=== PATIENT | female | born 2000 | race Caucasian/White ===

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

== ENCOUNTER → 2020-02-20 | Outpatient (CLI) | payer BC, MEDICAID ==
[2020-02-20 08:25] LABS: Basophils # (auto) 0 10 ^3/uL (0-0.2); Eosinophils # (auto) 0 10 ^3/uL (0-0.8); Hemoglobin 12.4 g/dL (12.2-16.2); Monocytes # (auto) 0.6 10 ^3/uL (0-1.3); Nucleated Red Blood Cells % 0.1 %
[2020-02-20 08:26] LABS: Basophils % (auto) 0.1 % (0.0-2.0); Hematocrit 38.6 % (36.0-46.0); Lymphocytes # (auto) 2.5 10 ^3/uL (0.4-5.4); Lymphocytes % (auto) 27.6 % (10.0-50.0); Mean Corpuscular Hemoglobin 23.1 pg (28.0-32.0); Mean Corpuscular Hgb Conc. 32.2 g/dL (32.0-36.0); Mean Corpuscular Volume 71.8 fL (80.0-100.0); Monocytes % (auto) 6.6 % (0.0-12.0); Neutrophils % (auto) 65.7 % (37.0-80.0); Platelet Count (auto) 301 10^3/uL (140-450); Red Blood Cells 5.38 10^6/uL (4.0-5.20); Red Cell Distribution Width 15.9 % (11.8-14.3); White Blood Cell 9.1 10^3/uL (4.4-10.8)
[2020-02-20 08:54] LABS: Potassium 3.7 mmol/L (3.5-5.1)
[2020-02-20 09:01] LABS: Albumin 3.3 g/dL (3.4-5.0); BUN/Creatinine Ratio 17.6; Bilirubin, Total 0.3 mg/dL (0.2-1.0); Calcium 8.9 mg/dL (8.5-10.1); Total Protein 7.2 g/dL (6.4-8.2)
== END | disposition home or self-care (01) ==
LOC: LAB 08:09
PROVIDERS: ATTEND Physician Assistant
DX: J45.909 Unspecified asthma, uncomplicated (principal); E28.2 Polycystic ovarian syndrome; E66.01 Morbid (severe) obesity due to excess calories
CPT/HCPCS: 36415; 80053; 80061; 85025

== ENCOUNTER → 2020-06-04 | Outpatient (CLI) | payer BC, MEDICAID | END | disposition home or self-care (01) | LOC: LAB 08:16 | DX: J30.1 Allergic rhinitis due to pollen (principal) | CPT/HCPCS: 82785 ==

== ENCOUNTER → 2020-06-10 | Outpatient (CLI) | payer BC, MEDICAID ==
[2020-06-10 15:08] LABS: Basophils # (auto) 0 10 ^3/uL (0-0.2); Basophils % (auto) 0.1 % (0.0-2.0); Eosinophils # (auto) 0 10 ^3/uL (0-0.8); Mean Corpuscular Hemoglobin 22.9 pg (28.0-32.0); Mean Corpuscular Hgb Conc. 32.2 g/dL (32.0-36.0); Monocytes # (auto) 0.4 10 ^3/uL (0-1.3); Neutrophils # (auto) 6.2 10 ^3/uL (1.6-8.6); White Blood Cell 8.7 10^3/uL (4.4-10.8)
[2020-06-10 15:09] LABS: Hematocrit 36.9 % (36.0-46.0); Hemoglobin 11.9 g/dL (12.2-16.2); Lymphocytes % (auto) 23.2 % (10.0-50.0); Mean Corpuscular Volume 71.3 fL (80.0-100.0); Monocytes % (auto) 5.1 % (0.0-12.0); Neutrophils % (auto) 71.6 % (37.0-80.0); Platelet Count (auto) 328 10^3/uL (140-450); Red Blood Cells 5.18 10^6/uL (4.0-5.20); Red Cell Distribution Width 15.7 % (11.8-14.3)
[2020-06-10 15:38] LABS: BUN/Creatinine Ratio 10.2; Calcium 8.8 mg/dL (8.5-10.1)
== END | disposition home or self-care (01) ==
LOC: LAB 14:49
PROVIDERS: ATTEND Physician Assistant
DX: Z01.818 Encounter for other preprocedural examination (principal); Z01.812 Encounter for preprocedural laboratory examination
CPT/HCPCS: 36415; 80048; 85025

== ENCOUNTER → 2021-03-02 | Outpatient (CLI) | payer BC ==
[~2021-03-02] MED LIST changes: -LEVO500T21 PO; +LEVO500T31 PO
[2021-03-02 09:24] LABS: Basophils # (auto) 0 10 ^3/uL (0-0.2); Basophils % (auto) 0.1 % (0.0-2.0); Eosinophils # (auto) 0 10 ^3/uL (0-0.8); Hematocrit 33.8 % (36.0-46.0); Hemoglobin 11.1 g/dL (12.2-16.2); Lymphocytes # (auto) 3.2 10 ^3/uL (0.4-5.4); Mean Corpuscular Hemoglobin 22.6 pg (28.0-32.0); Mean Corpuscular Volume 68.5 fL (80.0-100.0); Red Blood Cells 4.93 10^6/uL (4.0-5.20)
[2021-03-02 09:26] LABS: Lymphocytes % (auto) 28.4 % (10.0-50.0); Monocytes # (auto) 0.7 10 ^3/uL (0-1.3); Neutrophils # (auto) 7.4 10 ^3/uL (1.6-8.6); Neutrophils % (auto) 65.5 % (37.0-80.0); Nucleated Red Blood Cells % 0.1 %; White Blood Cell 11.3 10^3/uL (4.4-10.8)
[2021-03-02 10:09] LABS: Potassium 3.9 mmol/L (3.5-5.1)
[2021-03-02 10:12] LABS: BUN/Creatinine Ratio 18.9; Bilirubin, Total 0.2 mg/dL (0.2-1.0); Calcium 8.1 mg/dL (8.5-10.1)
== END | disposition home or self-care (01) ==
LOC: LAB 08:21
PROVIDERS: ATTEND Nurse Practitioner Family
DX: E66.01 Morbid (severe) obesity due to excess calories (principal); F41.9 Anxiety disorder, unspecified; F33.1 Major depressive disorder, recurrent, moderate; J45.909 Unspecified asthma, uncomplicated
CPT/HCPCS: 36415; 80053; 83036; 84443; 85025

== ENCOUNTER 2021-10-05 10:35 | Inpatient (IN) | payer BC, MEDICAID ==
[~2021-10-05] VITALS: Ht 177.8 cm; Wt 146.3 kg
[2021-10-05] MEDS ORDERED: ALBUTEROL SULF 2.5 MG/0.5ML(0.5%) NEB SOLN HHN ONE (11:15)
[2021-10-05] MEDS ORDERED: methylPREDNISolone SOD SUCC 125 MG/2 ML VL IV ONE (11:15)
[2021-10-05] MEDS ORDERED: IPRATROPIUM BROM 0.5 MG/2.5ML INH SOL HHN ONE (11:15)
[2021-10-05 12:23] LABS: Basophils # (auto) 0 10 ^3/uL (0-0.2); Basophils % (auto) 0.1 % (0.0-2.0); Eosinophils # (auto) 0 10 ^3/uL (0-0.8); Hemoglobin 11.2 g/dL (12.2-16.2); Lymphocytes # (auto) 1.8 10 ^3/uL (0.4-5.4); Monocytes # (auto) 0.5 10 ^3/uL (0-1.3)
[2021-10-05 12:29] LABS: Hematocrit 34.6 % (36.0-46.0); Lymphocytes % (auto) 24.5 % (10.0-50.0); Mean Corpuscular Hemoglobin 21.9 pg (28.0-32.0); Mean Corpuscular Hgb Conc. 32.4 g/dL (32.0-36.0); Mean Corpuscular Volume 67.5 fL (80.0-100.0); Monocytes % (auto) 6.7 % (0.0-12.0); Neutrophils % (auto) 68.7 % (37.0-80.0); Red Blood Cells 5.12 10^6/uL (4.0-5.20); White Blood Cell 7.2 10^3/uL (4.4-10.8)
[2021-10-05 12:53] LABS: Albumin 3.3 g/dL (3.4-5.0); Calcium 8.9 mg/dL (8.5-10.1)
[2021-10-05 12:55] LABS: Bilirubin, Total 0.3 mg/dL (0.2-1.0); Total Protein 7.3 g/dL (6.4-8.2)
[2021-10-05] MEDS ORDERED: guaiFENesin 200 MG/10 ML UD PO PRN (13:15)
[2021-10-05] MEDS ORDERED: LORazepam 0.5 MG TAB PO PRN (13:45)
[2021-10-05] MEDS: ALBUTEROL SULF 2.5 MG/0.5ML(0.5%) NEB SOLN NEB PRN (15:24)
[2021-10-05 17:39] VITALS: BP 113/50
[2021-10-05] MEDS ORDERED: QUET400T PO (18:04)
[2021-10-05] MEDS: IPRATROPIUM BROM 0.5 MG/2.5ML INH SOL NEB SCH ×2 (18:13→22:06)
[2021-10-05] MEDS: ALBUTEROL SULF 2.5 MG/0.5ML(0.5%) NEB SOLN NEB SCH ×2 (18:13→22:06)
[2021-10-05 20:00] VITALS: BP 120/85
[2021-10-05] MEDS: QUEtiapine FUMARATE 100 MG TAB PO SCH (21:31)
[2021-10-05] MEDS: TEMAZEPAM 15 MG CAP PO SCH (21:31)
[2021-10-05] MEDS: methylPREDNISolone SOD SUCC 125 MG/2 ML VL IV SCH (21:31)
[2021-10-05 22:00] VITALS: BP 120/85
[2021-10-06] MEDS: ALBUTEROL SULF 2.5 MG/0.5ML(0.5%) NEB SOLN NEB PRN (04:43)
[2021-10-06 05:00] VITALS: BP 135/72
[2021-10-06 06:10] LABS: Basophils # (auto) 0 10 ^3/uL (0-0.2); Basophils % (auto) 0.1 % (0.0-2.0); Eosinophils # (auto) 0 10 ^3/uL (0-0.8); Hematocrit 35.5 % (36.0-46.0); Hemoglobin 11.6 g/dL (12.2-16.2); Mean Corpuscular Hemoglobin 22.3 pg (28.0-32.0); Mean Corpuscular Hgb Conc. 32.7 g/dL (32.0-36.0); Mean Corpuscular Volume 68.2 fL (80.0-100.0); Monocytes # (auto) 0.2 10 ^3/uL (0-1.3); Monocytes % (auto) 2.6 % (0.0-12.0); Neutrophils # (auto) 7.5 10 ^3/uL (1.6-8.6); Neutrophils % (auto) 86.3 % (37.0-80.0); Red Blood Cells 5.21 10^6/uL (4.0-5.20); Red Cell Distribution Width 16.7 % (11.8-14.3); White Blood Cell 8.7 10^3/uL (4.4-10.8)
[2021-10-06 06:28] LABS: Calcium 9.2 mg/dL (8.5-10.1); Potassium 4.1 mmol/L (3.5-5.1)
[2021-10-06] MEDS: IPRATROPIUM BROM 0.5 MG/2.5ML INH SOL NEB SCH ×4 (07:18→22:03)
[2021-10-06] MEDS: ALBUTEROL SULF 2.5 MG/0.5ML(0.5%) NEB SOLN NEB SCH ×4 (07:18→22:03)
[2021-10-06 08:45] VITALS: BP 135/102
[2021-10-06] MEDS ORDERED: cefTRIAXone SOD 1,000 MG VL IV SCH (10:15)
[2021-10-06] MEDS: cefTRIAXone 1GM/50ML D5W 50 ML IV SCH (10:16)
[2021-10-06] MEDS: methylPREDNISolone SOD SUCC 125 MG/2 ML VL IV SCH ×2 (10:49→21:38)
[2021-10-06] MEDS: FAMOTIDINE 20 MG TAB PO SCH (10:50)
[2021-10-06 13:00] VITALS: BP 134/66
[2021-10-06] MEDS ORDERED: TEMA15CA2 PO (13:18)
[2021-10-06] MEDS ORDERED: ATOM60CA PO (13:18)
[2021-10-06 16:49] VITALS: BP 132/92
[2021-10-06 20:00] VITALS: BP 125/82
[2021-10-06] MEDS: QUEtiapine FUMARATE 100 MG TAB PO SCH (21:39)
[2021-10-06] MEDS: TEMAZEPAM 15 MG CAP PO SCH (21:39)
[2021-10-06 22:25] VITALS: BP 125/82
[2021-10-07 05:07] VITALS: BP 112/36
[2021-10-07] MEDS: IPRATROPIUM BROM 0.5 MG/2.5ML INH SOL NEB SCH ×4 (06:35→22:15)
[2021-10-07] MEDS: ALBUTEROL SULF 2.5 MG/0.5ML(0.5%) NEB SOLN NEB SCH ×4 (06:35→22:15)
[2021-10-07 08:00] VITALS: BP 118/64
[2021-10-07] MEDS: cefTRIAXone 1GM/50ML D5W 50 ML IV SCH ×2 (09:00→10:00)
[2021-10-07] MEDS: methylPREDNISolone SOD SUCC 125 MG/2 ML VL IV SCH (09:46)
[2021-10-07] MEDS: LORATADINE 10 MG TAB PO SCH (09:47)
[2021-10-07] MEDS: ACETAMINOPHEN 325 MG TAB PO PRN (09:49)
[2021-10-07] MEDS: FAMOTIDINE 20 MG TAB PO SCH (09:49)
[2021-10-07] MEDS ORDERED: ATOMOXETINE 60 MG PO SCH (10:00)
[2021-10-07 12:00] VITALS: BP 125/70
[2021-10-07 16:00] VITALS: BP 119/85
[2021-10-07] MEDS: QUEtiapine FUMARATE 100 MG TAB PO SCH (20:41)
[2021-10-07] MEDS: methylPREDNISolone SOD SUCC 40 MG/ML VL IV SCH (20:41)
[2021-10-07] MEDS: TEMAZEPAM 15 MG CAP PO SCH (20:41)
[2021-10-07] MEDS: ATOMOXETINE 60 MG PO SCH (20:55)
[2021-10-07 21:39] VITALS: BP 145/76
[2021-10-08 03:41] VITALS: BP 145/76
[2021-10-08 05:00] VITALS: BP 105/54
[2021-10-08] MEDS: IPRATROPIUM BROM 0.5 MG/2.5ML INH SOL NEB SCH ×4 (07:42→20:18)
[2021-10-08] MEDS: ALBUTEROL SULF 2.5 MG/0.5ML(0.5%) NEB SOLN NEB SCH ×4 (07:42→20:19)
[2021-10-08] MEDS ORDERED: cefTRIAXone 1GM/50ML D5W 50 ML IV ONE (08:00)
[2021-10-08 08:57] VITALS: BP 124/73
[2021-10-08] MEDS: methylPREDNISolone SOD SUCC 40 MG/ML VL IV SCH (09:41)
[2021-10-08] MEDS: LORATADINE 10 MG TAB PO SCH (09:41)
[2021-10-08] MEDS: FAMOTIDINE 20 MG TAB PO SCH (09:42)
[2021-10-08 12:32] VITALS: BP 131/79
[2021-10-08] MEDS: ACETAMINOPHEN 325 MG TAB PO PRN (12:51)
[2021-10-08] MEDS ORDERED: ENOXAPARIN SOD 40 MG/0.4 ML SYRINGE SC SCH ×2 (16:00→16:22)
[2021-10-08] MEDS ORDERED: ENOXAPARIN SOD 40 MG/0.4 ML SYRINGE SC ONE (16:30)
[2021-10-08 16:43] VITALS: BP 152/98
[2021-10-08] MEDS: TEMAZEPAM 15 MG CAP PO SCH (21:10)
[2021-10-08] MEDS: QUEtiapine FUMARATE 100 MG TAB PO SCH (21:10)
[2021-10-08] MEDS: predniSONE 20 MG TAB PO SCH (21:10)
[2021-10-08] MEDS: ATOMOXETINE 60 MG PO SCH (21:11)
[2021-10-08 21:50] VITALS: BP 149/90
[2021-10-09 05:16] VITALS: BP 105/42
[2021-10-09 08:30] VITALS: BP 140/88
[2021-10-09] MEDS: predniSONE 20 MG TAB PO SCH (08:59)
[2021-10-09] MEDS: LORATADINE 10 MG TAB PO SCH (08:59)
[2021-10-09] MEDS: FAMOTIDINE 20 MG TAB PO SCH (09:00)
[2021-10-09] MEDS ORDERED: ENOXAPARIN SOD 40 MG/0.4 ML SYRINGE SC SCH (10:00)
[2021-10-09 12:30] VITALS: BP 155/91
[2021-10-09] MEDS ORDERED: PRED1PAK9 PO ×2 (13:00→13:08)
[2021-10-09] MEDS ORDERED: FAMO-12 PO (13:02)
== END 2021-10-09 14:00 | disposition home or self-care (01) | DRG 202 ==
LOC: ER 10:35 → TELE 14:33 → TELE-WESTW 17:00
PROVIDERS: ADMIT Internal Medicine; ATTEND Internal Medicine
DX: J45.42 Moderate persistent asthma with status asthmaticus (principal); Z68.42 Body mass index [BMI] 45.0-49.9, adult; R09.02 Hypoxemia; F31.9 Bipolar disorder, unspecified; D63.8 Anemia in other chronic diseases classified elsewhere; E66.9 Obesity, unspecified; R00.0 Tachycardia, unspecified; Z20.822 Contact with and (suspected) exposure to COVID-19; Z83.3 Family history of diabetes mellitus; Z82.3 Family history of stroke; Z80.3 Family history of malignant neoplasm of breast; Z88.1 Allergy status to other antibiotic agents
CPT/HCPCS: 36415; 71046; 80048; 80053; 85025; 85379; 87070; 87205; 87426; 93005; 94640; 94644; 94660; 96374; G0378; J0696

== ENCOUNTER 2022-02-10 07:15 | Day surgery (SDC) | payer BC, MEDICAID ==
[2022-01-20 09:52] LABS: Urine Bacteria NONE SEEN /hpf (None Seen); Urine Blood Negative /uL (Negative); Urine Specific Gravity 1.018 (1.001-1.035); Urine WBC <1 /hpf (0 - 5)
[2022-01-20 10:04] LABS: Basophils # (auto) 0.1 10 ^3/uL (0-0.2); Basophils % (auto) 1.4 % (0.0-2.0); Eosinophils # (auto) 0 10 ^3/uL (0-0.8); Hematocrit 34.3 % (36.0-46.0); Lymphocytes # (auto) 2.5 10 ^3/uL (0.4-5.4); Lymphocytes % (auto) 34.6 % (10.0-50.0); Mean Corpuscular Hemoglobin 22.3 pg (28.0-32.0); Mean Corpuscular Hgb Conc. 32.2 g/dL (32.0-36.0); Mean Corpuscular Volume 69.4 fL (80.0-100.0); Monocytes # (auto) 0.5 10 ^3/uL (0-1.3); Monocytes % (auto) 7.3 % (0.0-12.0); Neutrophils # (auto) 4.1 10 ^3/uL (1.6-8.6); Neutrophils % (auto) 56.7 % (37.0-80.0); Nucleated Red Blood Cells % 0.1 %; Red Blood Cells 4.95 10^6/uL (4.0-5.20); White Blood Cell 7.2 10^3/uL (4.4-10.8)
[2022-01-20 10:23] LABS: INR 1.03 (0.9-1.15); Partial Thromboplastin Time 27.8 sec (23.6-33.0)
[2022-01-20 10:26] LABS: Potassium 4.1 mmol/L (3.5-5.1)
[2022-01-20 10:34] LABS: Albumin 3.2 g/dL (3.4-5.0); Bilirubin, Total 0.2 mg/dL (0.2-1.0); Calcium 8.5 mg/dL (8.5-10.1)
[2022-02-08 09:17] LABS: Basophils # (auto) 0 10 ^3/uL (0-0.2); Basophils % (auto) 0.1 % (0.0-2.0); Eosinophils # (auto) 0 10 ^3/uL (0-0.8); Hematocrit 37.5 % (36.0-46.0); Hemoglobin 11.7 g/dL (12.2-16.2); Lymphocytes # (auto) 2.9 10 ^3/uL (0.4-5.4); Lymphocytes % (auto) 37.2 % (10.0-50.0); Mean Corpuscular Hemoglobin 21.5 pg (28.0-32.0); Mean Corpuscular Hgb Conc. 31.2 g/dL (32.0-36.0); Monocytes # (auto) 0.6 10 ^3/uL (0-1.3); Monocytes % (auto) 7.5 % (0.0-12.0); Neutrophils # (auto) 4.2 10 ^3/uL (1.6-8.6); Neutrophils % (auto) 55.2 % (37.0-80.0); Red Blood Cells 5.44 10^6/uL (4.0-5.20); Red Cell Distribution Width 16.8 % (11.8-14.3); White Blood Cell 7.7 10^3/uL (4.4-10.8)
[2022-02-08 09:19] LABS: Mean Corpuscular Volume 68.9 fL (80.0-100.0)
[2022-02-08 09:30] LABS: Urine Bacteria FEW /hpf (None Seen); Urine Blood Negative /uL (Negative); Urine Specific Gravity 1.016 (1.001-1.035); Urine WBC 4 /hpf (0 - 5)
[2022-02-08 09:40] LABS: INR 1.04 (0.9-1.15); Partial Thromboplastin Time 28.2 sec (23.6-33.0)
[2022-02-08 09:44] LABS: Potassium 4.2 mmol/L (3.5-5.1)
[2022-02-08 09:51] LABS: Albumin 3.2 g/dL (3.4-5.0); BUN/Creatinine Ratio 12.2; Bilirubin, Total 0.2 mg/dL (0.2-1.0); Calcium 8.7 mg/dL (8.5-10.1)
[~2022-02-10] VITALS: Ht 177.8 cm; Wt 163.3 kg
[~2022-02-10 07:15] MED LIST changes: -ALBU0.084; +ALBU1AER4 IN; +ATOM60CA PO; -DOX100T PO; +FAMO-12 PO; -FLUO-125 PO; +FLUT1AER17 IN; -FLUT250M2 INH; -GUAISYP8; -LEVO500T31 PO; +LORA0.5T19 PO; -PANT40T PO; -PRE1T PO; +QUET300T4 PO; -SACC250C PO; +TEMA15CA2 PO; +[UNRECOGNIZED DRUG - CODE] SC
[2022-02-10] MEDS ORDERED: CLINDAMYCIN 900MG IV 50 ML IV ONE (07:26)
[2022-02-10] MEDS ORDERED: CLIN300C8 PO (08:49)
[2022-02-10] MEDS ORDERED: HYDR-4902 PO (08:49)
[2022-02-10] MEDS ORDERED: SUCCINYLCHOLINE CHLORIDE 20 MG/ML 10ML VIAL IV ONE (09:07)
[2022-02-10] MEDS ORDERED: PROPOFOL 10 MG/ML 20 ML IV ONE ×3 (09:12→12:13)
[2022-02-10] MEDS ORDERED: MIDAZOLAM HCL 2MG/2ML 2ml VIAL (1mg/ml) ONE (09:14)
[2022-02-10] MEDS ORDERED: fentaNYL CITRATE 100 MCG/2 ML VL ONE ×2 (09:14→09:49)
[2022-02-10] MEDS ORDERED: ROCURONIUM 10MG/ML 10ML VIAL IV ONE (09:32)
[2022-02-10] MEDS ORDERED: ONDANSETRON HCL 4 MG/2 ML VIAL IV PRN (10:30)
[2022-02-10] MEDS ORDERED: ONDANSETRON HCL 4 MG/2 ML VIAL ONE (11:01)
[2022-02-10] MEDS: HYDROmorphone HCL 2 MG/ML VL/or syr IV PRN ×2 (12:25→12:45)
[2022-02-10 13:10] VITALS: BP 128/64
== END 2022-02-10 13:30 | disposition home or self-care (01) ==
LOC: SUR 07:15
PROVIDERS: ATTEND Student in an Organized Health Care Education/Training Program
DX: S93.431A Sprain of tibiofibular ligament of right ankle, initial encounter (principal); M25.371 Other instability, right ankle; J45.909 Unspecified asthma, uncomplicated; F90.9 Attention-deficit hyperactivity disorder, unspecified type; Z88.0 Allergy status to penicillin; E66.01 Morbid (severe) obesity due to excess calories; G47.30 Sleep apnea, unspecified; F41.9 Anxiety disorder, unspecified; F32.A Depression, unspecified; Z80.3 Family history of malignant neoplasm of breast; Z98.890 Other specified postprocedural states; Z79.899 Other long term (current) drug therapy; Z68.43 Body mass index [BMI] 50.0-59.9, adult; Z83.3 Family history of diabetes mellitus; Z82.49 Family history of ischemic heart disease and other diseases of the circulatory system; Z20.822 Contact with and (suspected) exposure to COVID-19; X58.XXXA Exposure to other specified factors, initial encounter; Y92.89 Other specified places as the place of occurrence of the external cause; Y93.89 Activity, other specified; Y99.8 Other external cause status
CPT/HCPCS: 27695; 36415; 73600; 80053; 81001; 81025; 84702; 85025; 85610; 85730; C1713; J0330; J1170; J2001; J2250; J2405; J2704; J3010; J3490; U0003; 76000

== ENCOUNTER → 2022-06-16 | Outpatient (CLI) | payer BC, MEDICAID ==
[~2022-06-16] MED LIST changes: +CLIN300C8 PO; +HYDR-4902 PO
[2022-06-16 10:32] LABS: Basophils # (auto) 0 10 ^3/uL (0-0.2); Basophils % (auto) 0.1 % (0.0-2.0); Eosinophils # (auto) 0 10 ^3/uL (0-0.8); Lymphocytes # (auto) 2.2 10 ^3/uL (0.4-5.4); Monocytes # (auto) 0.5 10 ^3/uL (0-1.3)
[2022-06-16 10:34] LABS: Hematocrit 36.9 % (36.0-46.0); Hemoglobin 11.5 g/dL (12.2-16.2); Lymphocytes % (auto) 30.1 % (10.0-50.0); Mean Corpuscular Hemoglobin 21.4 pg (28.0-32.0); Mean Corpuscular Hgb Conc. 31.3 g/dL (32.0-36.0); Mean Corpuscular Volume 68.4 fL (80.0-100.0); Neutrophils # (auto) 4.7 10 ^3/uL (1.6-8.6); Neutrophils % (auto) 62.8 % (37.0-80.0); Nucleated Red Blood Cells % 0.1 %; Red Blood Cells 5.39 10^6/uL (4.0-5.20); Red Cell Distribution Width 17.1 % (11.8-14.3); White Blood Cell 7.5 10^3/uL (4.4-10.8)
[2022-06-16 11:19] LABS: Albumin 3.3 g/dL (3.4-5.0); BUN/Creatinine Ratio 13.1; Calcium 8.8 mg/dL (8.5-10.1); Potassium 4.1 mmol/L (3.5-5.1); Total Protein 7.2 g/dL (6.4-8.2)
[2022-06-16 11:25] LABS: Bilirubin, Total 0.3 mg/dL (0.2-1.0)
== END | disposition home or self-care (01) ==
LOC: LAB 10:10
PROVIDERS: ATTEND Nurse Practitioner Family
DX: Z00.00 Encounter for general adult medical examination without abnormal findings (principal); E66.01 Morbid (severe) obesity due to excess calories; F31.9 Bipolar disorder, unspecified
CPT/HCPCS: 36415; 80053; 80061; 84439; 84443; 85025; 85652; 86431

== ENCOUNTER 2022-11-08 16:35 | Emergency (ER) | payer BC, MEDICAID ==
[~2022-11-08] VITALS: Ht 177.8 cm; Wt 184.8 kg
[2022-11-08] MEDS ORDERED: IPRATROPIUM BROM 0.5 MG/2.5ML INH SOL NEB ONE (19:00)
[2022-11-08] MEDS ORDERED: FAMOTIDINE (10MG/ML) 2ML VL IV ONE (19:00)
[2022-11-08] MEDS ORDERED: diphenhdrAMINE HCL 50 MG/1 ML VL IV ONE ×2 (19:00→23:30)
[2022-11-08] MEDS ORDERED: ALBUTEROL SULF 2.5 MG/0.5ML(0.5%) NEB SOLN NEB ONE (19:00)
[2022-11-08] MEDS ORDERED: methylPREDNISolone SOD SUCC 125 MG/2 ML VL IV ONE (19:00)
[2022-11-08 23:24] VITALS: BP 138/76
[2022-11-08] MEDS ORDERED: PRED20TA2 PO (23:28)
== END 2022-11-09 00:14 | disposition home or self-care (01) ==
LOC: ER 16:35
DX: T38.0X5A Adverse effect of glucocorticoids and synthetic analogues, initial encounter (principal); F41.9 Anxiety disorder, unspecified; J45.909 Unspecified asthma, uncomplicated; F32.9 Major depressive disorder, single episode, unspecified; Z91.011 Allergy to milk products; Z79.899 Other long term (current) drug therapy; Y92.89 Other specified places as the place of occurrence of the external cause
CPT/HCPCS: 94640; 96374; 96375; 96376; 99284; J1200; J2930; J3490; J7644

== ENCOUNTER → 2023-02-14 | Outpatient (CLI) | payer BC, MEDICAID ==
[~2023-02-14] MED LIST changes: +ALBUTEROL SULF 2.5 MG/0.5ML(0.5%) NEB SOLN ONE; +CLIN300C70 PO; -CLIN300C8 PO; +LORA-1120 PO; -LORA0.5T19 PO; +PRED20TA2 PO
== END | disposition home or self-care (01) ==
LOC: RT 12:34
PROVIDERS: ATTEND Nurse Practitioner Family
DX: J45.50 Severe persistent asthma, uncomplicated (principal); R06.02 Shortness of breath
CPT/HCPCS: 94060; 94727; 94729

== ENCOUNTER → 2023-02-27 | Outpatient (CLI) | payer BC ==
[~2023-02-27] MED LIST changes: -ALBUTEROL SULF 2.5 MG/0.5ML(0.5%) NEB SOLN ONE
[2023-02-27 12:34] LABS: Basophils # (auto) 0 10 ^3/uL (0-0.2); Eosinophils % (auto) 0.6 % (0.0-7.0); Hematocrit 38.9 % (36.0-46.0); Monocytes # (auto) 0.5 10 ^3/uL (0-1.3); Nucleated Red Blood Cells % 0.1 %
[2023-02-27 12:36] LABS: Basophils % (auto) 0.6 % (0.0-2.0); Eosinophils # (auto) 0 10 ^3/uL (0-0.8); Hemoglobin 12.5 g/dL (12.2-16.2); Lymphocytes # (auto) 2.1 10 ^3/uL (0.4-5.4); Lymphocytes % (auto) 24.2 % (10.0-50.0); Mean Corpuscular Hemoglobin 22.4 pg (28.0-32.0); Mean Corpuscular Hgb Conc. 32.3 g/dL (32.0-36.0); Mean Corpuscular Volume 69.5 fL (80.0-100.0); Monocytes % (auto) 6.5 % (0.0-12.0); Neutrophils # (auto) 5.8 10 ^3/uL (1.6-8.6); Neutrophils % (auto) 68.1 % (37.0-80.0); Red Blood Cells 5.59 10^6/uL (4.0-5.20); Red Cell Distribution Width 16.8 % (11.8-14.3); White Blood Cell 8.5 10^3/uL (4.4-10.8)
[2023-02-28 07:12] LABS: Immunoglobulin G, Serum 931 mg/dL (586-1602)
== END | disposition home or self-care (01) ==
LOC: LAB 11:26
PROVIDERS: ATTEND Internal Medicine Gastroenterology
DX: D80.1 Nonfamilial hypogammaglobulinemia (principal)
CPT/HCPCS: 36415; 82784; 82785; 85025; 86160

== ENCOUNTER 2023-10-21 09:43 | Emergency (ER) | payer BC, MEDICAID ==
[~2023-10-21] VITALS: Ht 177.8 cm; Wt 178.7 kg
[2023-10-21 11:22] VITALS: BP 144/79; TEMP 97.5
[2023-10-21] MEDS: ALBUTEROL SULF 2.5 MG/0.5ML(0.5%) NEB SOLN NEB ONE ×2 (12:03→14:53)
[2023-10-21] MEDS: IPRATROPIUM BROM 0.5 MG/2.5ML INH SOL NEB ONE ×2 (12:03→14:53)
[2023-10-21 12:34] LABS: Basophils # (auto) 0 10 ^3/uL (0-0.2); Basophils % (auto) 0.1 % (0.0-2.0); Eosinophils # (auto) 0 10 ^3/uL (0-0.8); Hemoglobin 11.3 g/dL (12.2-16.2); Lymphocytes # (auto) 2.2 10 ^3/uL (0.4-5.4); Monocytes # (auto) 0.6 10 ^3/uL (0-1.3); Neutrophils # (auto) 6.8 10 ^3/uL (1.6-8.6); White Blood Cell 9.6 10^3/uL (4.4-10.8)
[2023-10-21 12:36] LABS: Hematocrit 34.8 % (36.0-46.0); Lymphocytes % (auto) 23.2 % (10.0-50.0); Mean Corpuscular Hemoglobin 22.2 pg (28.0-32.0); Mean Corpuscular Hgb Conc. 32.5 g/dL (32.0-36.0); Mean Corpuscular Volume 68.3 fL (80.0-100.0); Monocytes % (auto) 5.9 % (0.0-12.0); Neutrophils % (auto) 70.8 % (37.0-80.0); Red Cell Distribution Width 16.5 % (11.8-14.3)
[2023-10-21 12:37] LABS: COVID19 ANTIGEN SOFIA FIA NEGATIVE (NEGATIVE)
[2023-10-21 12:44] LABS: Alanine Aminotransferase 36 U/L (7-40); Albumin 4.1 g/dL (3.2-4.8); Alkaline Phosphatase 100 U/L (46-116); Anion Gap 6 (5-15); Aspartate Aminotransferase 19 U/L (13-40); BUN/Creatinine Ratio 11.8 (10.0-20.0); Bilirubin, Total 0.6 mg/dL (0.2-1.0); Blood Urea Nitrogen 11 mg/dL (9-23); Calcium 9.1 mg/dL (8.5-10.1); Carbon Dioxide 26 mmol/L (20-30); Chloride 108 mmol/L (98-107); Glucose 87 mg/dL (74-106); Potassium 4.5 mmol/L (3.5-5.1); Sodium 140 mmol/L (136-145); Total Protein 6.2 g/dL (5.7-8.2)
[2023-10-21] MEDS: methylPREDNISolone SOD SUCC 125 MG/2 ML VL IM ONE (13:28)
[2023-10-21 13:34] LABS: Anisocytosis Slight
[2023-10-21 13:38] LABS: Hypochromia Slight; Platelet Estimate Adequate
[2023-10-21] MEDS ORDERED: AZITTAB PO (13:52)
[2023-10-21] MEDS ORDERED: PRED20TA2 PO (13:52)
[2023-10-21 13:58] VITALS: PULSE 106
[2023-10-21 14:53] VITALS: RESP 18; O2SAT 96
== END 2023-10-21 15:07 | disposition home or self-care (01) ==
LOC: ER 09:43
DX: J45.909 Unspecified asthma, uncomplicated (principal); R07.89 Other chest pain; F41.9 Anxiety disorder, unspecified; F32.9 Major depressive disorder, single episode, unspecified; Z20.822 Contact with and (suspected) exposure to COVID-19
CPT/HCPCS: 36415; 71045; 80053; 83880; 84484; 85025; 87426; 93005; 94640; 96372; 99285; J2930; J7644

== ENCOUNTER 2024-02-19 15:20 | Inpatient (IN) | payer BC, MEDICAID ==
[~2024-02-19] VITALS: Ht 177.8 cm; Wt 179.0 kg
[~2024-02-19 15:20] MED LIST changes: +AZITTAB PO; +CLIN1CAP70 PO; -CLIN300C70 PO
[2024-02-19] MEDS: ALBUTEROL SULF 2.5 MG/0.5ML(0.5%) NEB SOLN NEB ONE ×2 (16:37→22:48)
[2024-02-19] MEDS: IPRATROPIUM BROM 0.5 MG/2.5ML INH SOL NEB ONE ×2 (16:37→22:48)
[2024-02-19 16:57] LABS: Basophils # (auto) 0 10 ^3/uL (0-0.2); Basophils % (auto) 0.2 % (0.0-2.0); Eosinophils # (auto) 0 10 ^3/uL (0-0.8); Hemoglobin 12.5 g/dL (12.2-16.2); Lymphocytes # (auto) 1.5 10 ^3/uL (0.4-5.4); Lymphocytes % (auto) 20.9 % (10.0-50.0); Mean Corpuscular Hemoglobin 22.9 pg (28.0-32.0); Mean Corpuscular Hgb Conc. 32.8 g/dL (32.0-36.0); Mean Corpuscular Volume 69.7 fL (80.0-100.0); Monocytes # (auto) 0.4 10 ^3/uL (0-1.3); Monocytes % (auto) 5.8 % (0.0-12.0); Neutrophils # (auto) 5.1 10 ^3/uL (1.6-8.6); Neutrophils % (auto) 73.1 % (37.0-80.0); Red Blood Cells 5.45 10^6/uL (4.0-5.20)
[2024-02-19 17:08] LABS: Chloride 109 mmol/L (98-107); Sodium 141 mmol/L (136-145)
[2024-02-19 17:09] LABS: Anion Gap 8 (5-15); Calcium 9.5 mg/dL (8.7-10.4); Carbon Dioxide 24 mmol/L (20-30)
[2024-02-19 17:14] LABS: BUN/Creatinine Ratio 9.3 (10.0-20.0); Blood Urea Nitrogen 9 mg/dL (9-23); Glucose 90 mg/dL (74-106)
[2024-02-19] MEDS: MAGNESIUM SULFATE 1GM/100ML 100 ML IV SCH (22:57)
[2024-02-20] VITALS (10 sets, daily range): BP systolic 151; BP diastolic 76; PULSE 60–121; RESP 13–24; O2SAT 96–100
[2024-02-20] MEDS: QUEtiapine FUMARATE 100 MG TAB PO ONE (01:08)
[2024-02-20] MEDS: ALBUTEROL SULF 2.5 MG/0.5ML(0.5%) NEB SOLN NEB ONE (02:36)
[2024-02-20] MEDS: IPRATROPIUM BROM 0.5 MG/2.5ML INH SOL NEB ONE ×2 (02:36→16:25)
[2024-02-20] MEDS: DexAMETHasone SOD PHOS 10MG/1ML VIAL INJ IV ONE (02:40)
[2024-02-20 03:45] LABS: COVID19 ANTIGEN SOFIA FIA POSITIVE (NEGATIVE)
[2024-02-20] MEDS ORDERED: REMDESIVIR PER PHARMACY 0 ML IV SCH (04:15)
[2024-02-20] MEDS ORDERED: ACETAMINOPHEN 500 MG TAB PO PRN (04:15)
[2024-02-20 05:32] LABS: Magnesium 2.3 mg/dL (1.6-2.6)
[2024-02-20 05:37] LABS: Thyroid Stimulating Hormone 0.65 uIU/mL (0.55-4.78)
[2024-02-20 05:42] LABS: CRP High Sensitivity 1.18 mg/dL (<1.0)
[2024-02-20 05:48] LABS: Lactic Acid w/Reflex 3.9 mmol/L (0.4-2.0)
[2024-02-20] MEDS ORDERED: MORPHINE SULFATE INJ 2 MG/ml SYRG IV PRN (07:30)
[2024-02-20] MEDS: SODIUM CHLORIDE 0.9% 1,000 ML IV ONE (07:30)
[2024-02-20] MEDS ORDERED: NITROGLYCERIN 0.4 MG SL TAB SL PRN (07:30)
[2024-02-20 08:05] LABS: Alanine Aminotransferase 32 U/L (7-40); Albumin 4.6 g/dL (3.2-4.8); Alkaline Phosphatase 82 U/L (46-116); Anion Gap 13 (5-15); Aspartate Aminotransferase 15 U/L (13-40); BUN/Creatinine Ratio 10.6 (10.0-20.0); Blood Urea Nitrogen 11 mg/dL (9-23); Calcium 9.4 mg/dL (8.7-10.4); Carbon Dioxide 18 mmol/L (20-30); Chloride 108 mmol/L (98-107); Glucose 251 mg/dL (74-106); Potassium 4.2 mmol/L (3.5-5.1); Sodium 139 mmol/L (136-145)
[2024-02-20 08:06] LABS: Bilirubin, Total 0.2 mg/dL (0.2-1.0); Total Protein 7.3 g/dL (5.7-8.2)
[2024-02-20] MEDS: ALBUTEROL SULF HFA 90MCG INH 200DOSE IN PRN (09:48)
[2024-02-20] MEDS: ZINC SULFATE 220mg CAP or TAB PO SCH (10:34)
[2024-02-20] MEDS: ENOXAPARIN SOD 40 MG/0.4 ML SYRINGE SC SCH (10:35)
[2024-02-20] MEDS: REMDESIVIR 200 MG in NS 210ml LOADING DOSE ADULT IV ONE (10:35)
[2024-02-20] MEDS: diphenhdrAMINE HCL 50 MG/1 ML VL IV ONE (12:28)
[2024-02-20] MEDS ORDERED: ALBUTEROL SULF 2.5 MG/0.5ML(0.5%) NEB SOLN NEB ONE (15:30)
[2024-02-20] MEDS: ALBUTEROL SULF 2.5 MG/0.5ML(0.5%) NEB SOLN NEB PRN (16:24)
[2024-02-20] MEDS ORDERED: diphenhdrAMINE HCL 25 MG CAP PO PRN (17:15)
[2024-02-20] MEDS: IPRATROPIUM BROM 0.5 MG/2.5ML INH SOL NEB SCH (18:21)
[2024-02-20] MEDS ORDERED: QUETIAPINE 600 MG PO SCH (22:00)
[2024-02-20] MEDS: methylPREDNISolone SOD SUCC 40 MG/ML VL IV SCH (23:51)
[2024-02-20] MEDS: QUEtiapine FUMARATE 100 MG TAB PO SCH (23:52)
[2024-02-21] VITALS (20 sets, daily range): BP systolic 124–143; BP diastolic 67–86; PULSE 62–91; RESP 18–21; TEMP 97.6–98.4; O2SAT 95–100
[2024-02-21] MEDS: diphenhdrAMINE HCL 25 MG CAP PO ONE (00:34)
[2024-02-21] MEDS: methylPREDNISolone SOD SUCC 40 MG/ML VL IV ONE (00:34)
[2024-02-21] MEDS: ERGOCALCIFEROL 50,000 UNIT(1.25MG) CAP PO ONE (00:47)
[2024-02-21] MEDS ORDERED: TEMA30CA PO (05:01)
[2024-02-21] MEDS ORDERED: QUET200T4 PO (05:01)
[2024-02-21 06:20] LABS: Urine Bacteria FEW /hpf (None Seen); Urine Blood Negative /uL (Negative); Urine Clarity Clear (Clear); Urine Color Yellow (Yellow); Urine Mucus FEW (None Seen); Urine Protein, UAD 1+ (Negative); Urine Specific Gravity 1.036 (1.001-1.035); Urine Urobilinogen Normal (Negative); Urine WBC 3 /hpf (0 - 5)
[2024-02-21] MEDS: FAMOTIDINE 20 MG TAB PO SCH (09:42)
[2024-02-21 10:33] LABS: Basophils # (auto) 0 10 ^3/uL (0-0.2); Basophils % (auto) 0.1 % (0.0-2.0); Eosinophils # (auto) 0 10 ^3/uL (0-0.8); Hemoglobin 11.4 g/dL (12.2-16.2); Lymphocytes # (auto) 1.4 10 ^3/uL (0.4-5.4); Lymphocytes % (auto) 12.5 % (10.0-50.0); Mean Corpuscular Hemoglobin 22.8 pg (28.0-32.0); Mean Corpuscular Hgb Conc. 32.5 g/dL (32.0-36.0); Mean Corpuscular Volume 70.2 fL (80.0-100.0); Monocytes # (auto) 0.4 10 ^3/uL (0-1.3); Monocytes % (auto) 3.5 % (0.0-12.0); Neutrophils # (auto) 9.1 10 ^3/uL (1.6-8.6); Neutrophils % (auto) 83.9 % (37.0-80.0); Red Blood Cells 4.99 10^6/uL (4.0-5.20); Red Cell Distribution Width 17.3 % (11.8-14.3); White Blood Cell 10.8 10^3/uL (4.4-10.8)
[2024-02-21 10:47] LABS: Alanine Aminotransferase 25 U/L (7-40); Albumin 4.3 g/dL (3.2-4.8); Alkaline Phosphatase 77 U/L (46-116); Anion Gap 8 (5-15); Aspartate Aminotransferase 9 U/L (13-40); BUN/Creatinine Ratio 15.1 (10.0-20.0); Blood Urea Nitrogen 13 mg/dL (9-23); Calcium 9.2 mg/dL (8.7-10.4); Carbon Dioxide 21 mmol/L (20-30); Chloride 109 mmol/L (98-107); Glucose 186 mg/dL (74-106); Potassium 4.3 mmol/L (3.5-5.1); Sodium 138 mmol/L (136-145)
[2024-02-21 10:48] LABS: Bilirubin, Total 0.2 mg/dL (0.2-1.0); Total Protein 6.6 g/dL (5.7-8.2)
[2024-02-21] MEDS ORDERED: REMDESIVIR 100mg 100 MG in SODIUM CHL 0.9% 230 ML IV SCH (15:00)
[2024-02-21] MEDS: methylPREDNISolone SOD SUCC 40 MG/ML VL IV SCH (15:27)
[2024-02-21] MEDS ORDERED: TEMAZEPAM 15 MG CAP PO SCH (18:00)
[2024-02-21 18:26] LABS: Rapid Influenza A Negative (Negative); Rapid Influenza B Negative (Negative)
[2024-02-21] MEDS ORDERED: FAMOTIDINE 20 MG TAB PO ONE (22:00)
[2024-02-21] MEDS: QUEtiapine FUMARATE 100 MG TAB PO SCH (22:29)
[2024-02-22] VITALS (22 sets, daily range): BP systolic 122–136; BP diastolic 63–81; PULSE 52–86; RESP 16–22; TEMP 97.6–98.8; O2SAT 92–100
[2024-02-22] MEDS: TEMAZEPAM 15 MG CAP PO PRN (00:08)
[2024-02-22 05:05] LABS: Basophils # (auto) 0 10 ^3/uL (0-0.2); Basophils % (auto) 0.1 % (0.0-2.0); Eosinophils # (auto) 0 10 ^3/uL (0-0.8); Hematocrit 35.2 % (36.0-46.0); Mean Corpuscular Hemoglobin 23.2 pg (28.0-32.0); Mean Corpuscular Hgb Conc. 32.8 g/dL (32.0-36.0); Monocytes # (auto) 0.3 10 ^3/uL (0-1.3)
[2024-02-22 05:07] LABS: Hemoglobin 11.5 g/dL (12.2-16.2); Lymphocytes # (auto) 1.1 10 ^3/uL (0.4-5.4); Lymphocytes % (auto) 9.8 % (10.0-50.0); Mean Corpuscular Volume 70.9 fL (80.0-100.0); Monocytes % (auto) 3.2 % (0.0-12.0); Neutrophils # (auto) 9.4 10 ^3/uL (1.6-8.6); Neutrophils % (auto) 86.9 % (37.0-80.0); Red Blood Cells 4.96 10^6/uL (4.0-5.20); Red Cell Distribution Width 16.9 % (11.8-14.3); White Blood Cell 10.8 10^3/uL (4.4-10.8)
[2024-02-22 05:12] LABS: Alanine Aminotransferase 26 U/L (7-40); Albumin 4.2 g/dL (3.2-4.8); Alkaline Phosphatase 76 U/L (46-116); Anion Gap 7 (5-15); Aspartate Aminotransferase 10 U/L (13-40); BUN/Creatinine Ratio 18.7 (10.0-20.0); Bilirubin, Total 0.2 mg/dL (0.2-1.0); Blood Urea Nitrogen 17 mg/dL (9-23); Calcium 9.2 mg/dL (8.7-10.4); Carbon Dioxide 24 mmol/L (20-30); Chloride 108 mmol/L (98-107); Glucose 145 mg/dL (74-106); Potassium 4.6 mmol/L (3.5-5.1); Sodium 139 mmol/L (136-145)
[2024-02-22 05:13] LABS: Total Protein 6.5 g/dL (5.7-8.2)
[2024-02-22] MEDS: PANTOPRAZOLE 40 MG TAB PO ONE (14:00)
[2024-02-23] VITALS (21 sets, daily range): BP systolic 119–143; BP diastolic 62–82; PULSE 61–89; RESP 16–98; TEMP 97.4–98.6; O2SAT 96–100
[2024-02-23] MEDS: PANTOPRAZOLE 40 MG TAB PO SCH (05:30)
[2024-02-23 06:56] LABS: Basophils # (auto) 0 10 ^3/uL (0-0.2); Basophils % (auto) 0.2 % (0.0-2.0); Eosinophils # (auto) 0 10 ^3/uL (0-0.8); Hemoglobin 11.7 g/dL (12.2-16.2); Mean Corpuscular Hgb Conc. 32.6 g/dL (32.0-36.0); Mean Corpuscular Volume 69.8 fL (80.0-100.0); Neutrophils # (auto) 8.7 10 ^3/uL (1.6-8.6); Red Cell Distribution Width 16.3 % (11.8-14.3); White Blood Cell 11.3 10^3/uL (4.4-10.8)
[2024-02-23 06:58] LABS: Lymphocytes # (auto) 1.9 10 ^3/uL (0.4-5.4); Lymphocytes % (auto) 16.6 % (10.0-50.0); Mean Corpuscular Hemoglobin 22.8 pg (28.0-32.0); Monocytes # (auto) 0.7 10 ^3/uL (0-1.3); Monocytes % (auto) 6.6 % (0.0-12.0); Neutrophils % (auto) 76.6 % (37.0-80.0); Red Blood Cells 5.15 10^6/uL (4.0-5.20)
[2024-02-23 07:19] LABS: Alanine Aminotransferase 26 U/L (7-40); Albumin 3.9 g/dL (3.2-4.8); Alkaline Phosphatase 78 U/L (46-116); Anion Gap 4 (5-15); Aspartate Aminotransferase < 8 U/L (13-40); BUN/Creatinine Ratio 18.3 (10.0-20.0); Blood Urea Nitrogen 15 mg/dL (9-23); Calcium 8.8 mg/dL (8.7-10.4); Carbon Dioxide 25 mmol/L (20-30); Chloride 110 mmol/L (98-107); Glucose 117 mg/dL (74-106); Potassium 4.5 mmol/L (3.5-5.1); Sodium 139 mmol/L (136-145)
[2024-02-23 07:22] LABS: Bilirubin, Total 0.2 mg/dL (0.2-1.0); Total Protein 6.1 g/dL (5.7-8.2)
[2024-02-23] MEDS: ALBUTEROL SULF 2.5 MG/0.5ML(0.5%) NEB SOLN NEB SCH (11:07)
[2024-02-23] MEDS: methylPREDNISolone SOD SUCC 40 MG/ML VL IV SCH (21:56)
[2024-02-23] MEDS: FAMOTIDINE 20 MG TAB PO SCH (21:57)
[2024-02-24] VITALS (20 sets, daily range): BP systolic 116–131; BP diastolic 68–77; PULSE 57–86; RESP 16–24; TEMP 97.6–98.6; O2SAT 97–100
[2024-02-24 07:10] LABS: Basophils # (auto) 0 10 ^3/uL (0-0.2); Eosinophils # (auto) 0 10 ^3/uL (0-0.8); Mean Corpuscular Volume 69.6 fL (80.0-100.0); Monocytes # (auto) 0.7 10 ^3/uL (0-1.3)
[2024-02-24 07:12] LABS: Basophils % (auto) 0.2 % (0.0-2.0); Hematocrit 36.8 % (36.0-46.0); Lymphocytes # (auto) 1.4 10 ^3/uL (0.4-5.4); Lymphocytes % (auto) 12.2 % (10.0-50.0); Mean Corpuscular Hemoglobin 22.6 pg (28.0-32.0); Mean Corpuscular Hgb Conc. 32.6 g/dL (32.0-36.0); Monocytes % (auto) 6.2 % (0.0-12.0); Neutrophils # (auto) 9.3 10 ^3/uL (1.6-8.6); Neutrophils % (auto) 81.4 % (37.0-80.0); Red Blood Cells 5.29 10^6/uL (4.0-5.20); Red Cell Distribution Width 16.9 % (11.8-14.3); White Blood Cell 11.4 10^3/uL (4.4-10.8)
[2024-02-24 07:37] LABS: Alanine Aminotransferase 30 U/L (7-40); Alkaline Phosphatase 85 U/L (46-116); Anion Gap 6 (5-15); Aspartate Aminotransferase < 8 U/L (13-40); BUN/Creatinine Ratio 21.6 (10.0-20.0); Bilirubin, Total 0.2 mg/dL (0.2-1.0); Blood Urea Nitrogen 19 mg/dL (9-23); CRP High Sensitivity 0.07 mg/dL (<1.0); Carbon Dioxide 26 mmol/L (20-30); Chloride 107 mmol/L (98-107); Glucose 115 mg/dL (74-106); Potassium 4.6 mmol/L (3.5-5.1); Sodium 139 mmol/L (136-145); Total Protein 6.3 g/dL (5.7-8.2)
[2024-02-24] MEDS: predniSONE 20 MG TAB PO SCH (09:51)
[2024-02-24] MEDS: QUEtiapine FUMARATE 100 MG TAB ONE (22:08)
[2024-02-24] MEDS: ACETAMINOPHEN 325 MG TAB PO PRN (23:04)
[2024-02-25] VITALS (21 sets, daily range): BP systolic 103–128; BP diastolic 53–77; PULSE 63–107; RESP 16–20; TEMP 97.7–98.4; O2SAT 96–100
[2024-02-25 01:16] LABS: COVID19 ANTIGEN SOFIA FIA NEGATIVE (NEGATIVE)
[2024-02-25 06:48] LABS: Basophils # (auto) 0 10 ^3/uL (0-0.2); Basophils % (auto) 0.1 % (0.0-2.0); Eosinophils # (auto) 0 10 ^3/uL (0-0.8); Mean Corpuscular Hemoglobin 22.9 pg (28.0-32.0); Mean Corpuscular Volume 69.7 fL (80.0-100.0)
[2024-02-25 06:50] LABS: Hematocrit 33.4 % (36.0-46.0); Lymphocytes # (auto) 3.3 10 ^3/uL (0.4-5.4); Lymphocytes % (auto) 29.4 % (10.0-50.0); Mean Corpuscular Hgb Conc. 32.8 g/dL (32.0-36.0); Monocytes # (auto) 0.9 10 ^3/uL (0-1.3); Monocytes % (auto) 7.9 % (0.0-12.0); Neutrophils # (auto) 7.1 10 ^3/uL (1.6-8.6); Neutrophils % (auto) 62.6 % (37.0-80.0); Red Blood Cells 4.79 10^6/uL (4.0-5.20); Red Cell Distribution Width 16.2 % (11.8-14.3); White Blood Cell 11.3 10^3/uL (4.4-10.8)
[2024-02-25 07:00] LABS: Alanine Aminotransferase 27 U/L (7-40); Albumin 3.6 g/dL (3.2-4.8); Alkaline Phosphatase 71 U/L (46-116); Anion Gap 5 (5-15); BUN/Creatinine Ratio 19.4 (10.0-20.0); Blood Urea Nitrogen 19 mg/dL (9-23); Calcium 8.5 mg/dL (8.7-10.4); Carbon Dioxide 28 mmol/L (20-30); Chloride 107 mmol/L (98-107); Glucose 79 mg/dL (74-106); Magnesium 1.7 mg/dL (1.6-2.6); Potassium 3.7 mmol/L (3.5-5.1); Sodium 140 mmol/L (136-145)
[2024-02-25 07:01] LABS: Bilirubin, Total 0.3 mg/dL (0.2-1.0); Total Protein 5.6 g/dL (5.7-8.2)
[2024-02-25 07:07] LABS: Aspartate Aminotransferase < 8 U/L (13-40)
[2024-02-25] MEDS: methylPREDNISolone SOD SUCC 40 MG/ML VL IV ONE ×2 (09:30→09:42)
[2024-02-25] MEDS: MAGNESIUM SULFATE 1GM/100ML 100 ML IV SCH (16:30)
[2024-02-25] MEDS: methylPREDNISolone SOD SUCC 40 MG/ML VL IV SCH (22:45)
[2024-02-26] VITALS (12 sets, daily range): BP systolic 124–143; BP diastolic 61–83; PULSE 66–90; RESP 16–20; TEMP 98–98.2; O2SAT 97–100
[2024-02-26 06:08] LABS: Basophils # (auto) 0 10 ^3/uL (0-0.2); Eosinophils # (auto) 0 10 ^3/uL (0-0.8); Hematocrit 33.9 % (36.0-46.0); Hemoglobin 11.4 g/dL (12.2-16.2); Lymphocytes # (auto) 1.4 10 ^3/uL (0.4-5.4); Lymphocytes % (auto) 10.2 % (10.0-50.0); Mean Corpuscular Hemoglobin 23.2 pg (28.0-32.0); Mean Corpuscular Hgb Conc. 33.6 g/dL (32.0-36.0); Mean Corpuscular Volume 69.2 fL (80.0-100.0); Monocytes # (auto) 0.6 10 ^3/uL (0-1.3); Monocytes % (auto) 4.1 % (0.0-12.0); Neutrophils # (auto) 11.8 10 ^3/uL (1.6-8.6); Neutrophils % (auto) 85.7 % (37.0-80.0); Red Cell Distribution Width 16.2 % (11.8-14.3); White Blood Cell 13.8 10^3/uL (4.4-10.8)
[2024-02-26 06:23] LABS: Alanine Aminotransferase 31 U/L (7-40); Albumin 3.8 g/dL (3.2-4.8); Alkaline Phosphatase 84 U/L (46-116); Anion Gap 5 (5-15); Aspartate Aminotransferase 9 U/L (13-40); BUN/Creatinine Ratio 18.1 (10.0-20.0); Bilirubin, Total 0.3 mg/dL (0.2-1.0); Blood Urea Nitrogen 15 mg/dL (9-23); Calcium 8.7 mg/dL (8.7-10.4); Carbon Dioxide 27 mmol/L (20-30); Chloride 107 mmol/L (98-107); Glucose 145 mg/dL (74-106); Potassium 4.5 mmol/L (3.5-5.1); Sodium 139 mmol/L (136-145); Total Protein 6.2 g/dL (5.7-8.2)
[2024-02-26] MEDS ORDERED: CEPH250C PO (16:02)
[2024-02-26] MEDS ORDERED: PRED20TA2 PO (16:02)
[2024-02-26] MEDS ORDERED: PRED1PAK9 PO (16:07)
== END 2024-02-26 17:18 | disposition home or self-care (01) | DRG 177 ==
LOC: ER 15:29 → TELE 02-20 07:17 → TELE-WESTW 02-21 04:09
PROVIDERS: ADMIT Internal Medicine Pulmonary Disease; ATTEND Internal Medicine Pulmonary Disease
PROC: XW033E5 Introduction of Remdesivir Anti-infective into Peripheral Vein, Percutaneous Approach, New Technology Group 5 (ICD-10-PCS; principal; 2024-02-20)
DX: U07.1 COVID-19 (principal); J96.01 Acute respiratory failure with hypoxia; J45.901 Unspecified asthma with (acute) exacerbation; E87.20 Acidosis, unspecified; Z68.43 Body mass index [BMI] 50.0-59.9, adult; E66.01 Morbid (severe) obesity due to excess calories; T50.995A Adverse effect of other drugs, medicaments and biological substances, initial encounter; Z88.0 Allergy status to penicillin; Y92.89 Other specified places as the place of occurrence of the external cause
CPT/HCPCS: 36415; 71045; 80048; 80053; 81001; 82306; 82728; 83036; 83605; 83615; 83735; 83880; 84443; 84702; 85025; 85379; 86141; 87081; 87426; 87804; 94640; 96365; 96366; G0378; J1100

== ENCOUNTER → 2024-09-08 | Outpatient (CLI) | payer BC ==
[~2024-09-08] MED LIST changes: +ALBUTEROL SULF 2.5 MG/0.5ML(0.5%) NEB SOLN ONE; -ATOM60CA PO; -AZITTAB PO; +CEPH250C PO; -CETI10CA PO; -CLIN1CAP70 PO; +PRED1PAK9 PO; +QUET200T4 PO; -QUET300T4 PO; -TEMA15CA2 PO; +TEMA30CA PO; -[UNRECOGNIZED DRUG - CODE] SC
--- NOTE | 2024-09-15 19:46 | DVHNC2 ---
Procedure - September 08, 2024 Pulmonary function test interpretation No obstructive or restrictive ventilatory defect. No significant bronchodilator response. Of note, FVC improved by 170 mL. Total lung capacity is 98% of predicted (6.25 L), within normal limits. Diffusion capacity is within normal limits, 82% of predicted. AYANA HEREDIA MD Sep 15, 2024 19:46
== END | disposition home or self-care (01) ==
LOC: RT 14:29
PROVIDERS: ATTEND Internal Medicine Pulmonary Disease
DX: J44.9 Chronic obstructive pulmonary disease, unspecified (principal); R06.00 Dyspnea, unspecified
CPT/HCPCS: 94060; 94727; 94729